=== PATIENT | female | born 1950 | race Native Hawaiian/Other Pacific Islander ===

== ENCOUNTER 2016-09-24 10:56 | Outpatient (CLI) | payer OTHER, MEDICARE ==
[~2016-09-24] VITALS: Ht 160 cm; Wt 75.3 kg
== END 2016-09-24 19:24 | disposition home or self-care (01) ==
LOC: INF 10:56
DX: M81.0 Age-related osteoporosis without current pathological fracture (principal)
CPT/HCPCS: 36415; 82310; 96372; J0897

== ENCOUNTER 2017-03-27 08:52 | Outpatient (CLI) | payer OTHER, MEDICARE ==
[~2017-03-27] VITALS: Ht 160 cm; Wt 75.3 kg
[2017-03-27 10:10] VITALS: BP 126/62; TEMP 97.6
== END 2017-03-27 10:10 | disposition home or self-care (01) ==
LOC: INF 08:52
DX: M81.0 Age-related osteoporosis without current pathological fracture (principal)
CPT/HCPCS: 36415; 82310; 96372; J0897

== ENCOUNTER 2017-09-27 07:55 | Outpatient (CLI) | payer OTHER, MEDICARE ==
[~2017-09-27] VITALS: Ht 160 cm; Wt 80.3 kg
== END 2017-09-27 22:23 | disposition home or self-care (01) ==
LOC: INF 07:55
DX: M81.0 Age-related osteoporosis without current pathological fracture (principal)
CPT/HCPCS: 36415; 82310; 96372; J0897

== ENCOUNTER 2018-03-31 09:07 | Outpatient (CLI) | payer OTHER, MEDICARE ==
[~2018-03-31] VITALS: Ht 160 cm; Wt 80.3 kg
== END 2018-03-31 19:51 | disposition home or self-care (01) ==
LOC: INF 09:07
DX: M81.0 Age-related osteoporosis without current pathological fracture (principal)
CPT/HCPCS: 36415; 82310; 96372; J0897

== ENCOUNTER 2018-09-30 12:03 | Outpatient (CLI) | payer OTHER, MEDICARE ==
[~2018-09-30] VITALS: Ht 160 cm; Wt 78.5 kg
[2018-09-30 12:30] VITALS: BP 140/68; TEMP 97.5
== END 2018-09-30 20:19 | disposition home or self-care (01) ==
LOC: INF 12:03
DX: M81.0 Age-related osteoporosis without current pathological fracture (principal)
CPT/HCPCS: 36415; 82310; 96372; J0897

== ENCOUNTER 2018-12-29 08:01 | Outpatient (CLI) | payer OTHER, MEDICARE ==
[2018-12-29 08:19] LABS: PLATELET COUNT 205 K/uL (152-353)
== END 2018-12-29 21:38 | disposition home or self-care (01) ==
LOC: LABW 08:01
PROVIDERS: Nurse Practitioner
DX: I10 Essential (primary) hypertension (principal); E78.00 Pure hypercholesterolemia, unspecified; R53.82 Chronic fatigue, unspecified; E55.9 Vitamin D deficiency, unspecified; E53.8 Deficiency of other specified B group vitamins
CPT/HCPCS: 36415; 80053; 80061; 82306; 82607; 84443; 85027

== ENCOUNTER 2019-02-24 08:12 | Outpatient (CLI) | payer OTHER, MEDICARE ==
[2019-02-24 08:48] LABS: POTASSIUM 4.4 mmol/L (3.6-5.2)
== END 2019-02-24 23:14 | disposition home or self-care (01) ==
LOC: LABW 08:12
PROVIDERS: Physician Assistant
DX: R19.4 Change in bowel habit (principal); K56.41 Fecal impaction
CPT/HCPCS: 36415; 80048; 84443; 85651; 86140

== ENCOUNTER 2019-04-01 08:04 | Outpatient (CLI) | payer OTHER, MEDICARE ==
[~2019-04-01] VITALS: Ht 160 cm; Wt 77.1 kg
[2019-04-01 08:35] VITALS: BP 109/47; TEMP 98.2
== END 2019-04-01 09:33 | disposition home or self-care (01) ==
LOC: INF 08:04
DX: M81.0 Age-related osteoporosis without current pathological fracture (principal)
CPT/HCPCS: 36415; 82310; 96372; J0897

== ENCOUNTER 2019-11-10 07:57 | Outpatient (CLI) | payer OTHER, MEDICARE ==
[~2019-11-10] VITALS: Ht 160 cm; Wt 77.1 kg
[2019-11-10 08:15] VITALS: BP 120/62; TEMP 98.1
== END 2019-11-10 19:06 | disposition home or self-care (01) ==
LOC: INF 07:57
DX: M81.0 Age-related osteoporosis without current pathological fracture (principal)
CPT/HCPCS: 36415; 82310; 96372; J0897

== ENCOUNTER 2021-10-05 13:24 | Outpatient (CLI) | payer OTHER, MEDICARE | END 2021-10-05 22:09 | disposition home or self-care (01) | LOC: MRI 13:24 | PROVIDERS: ATTEND Ophthalmology | DX: H53.8 Other visual disturbances (principal); G43.909 Migraine, unspecified, not intractable, without status migrainosus; R90.82 White matter disease, unspecified | CPT/HCPCS: 36415; 82565; 84520; A9576 ==

== ENCOUNTER 2022-04-12 10:23 | Outpatient (CLI) | payer OTHER, MEDICARE | END 2022-04-12 21:58 | disposition home or self-care (01) | LOC: RAD 10:23 | PROVIDERS: ATTEND Specialist | DX: M81.0 Age-related osteoporosis without current pathological fracture (principal) ==